=== PATIENT | female | born 1980 | race Caucasian/White ===

== ENCOUNTER → 2021-10-06 | Outpatient (CLI) | payer BC ==
[~2021-10-06] MED LIST: ACYC-109 PO; Birth Control Pill PO; CALC-656 PO; EPIN0.3P3 IJ; FLC1T PO; GARL400T13 PO; IBUP-15 PO; MULT-608 PO; OMG1KC PO
--- NOTE | 2021-10-06 14:02 | Diagnostic Imaging Report ---
Indication: Routine screening. No prior mammograms are available for comparison. This is a baseline study. 2-D and 3-D bilateral screening mammography was performed with CAD. Both breasts are heterogeneously dense, limiting the sensitivity of mammography. No mass or malignant-appearing microcalcifications are seen. Axillae are unremarkable. IMPRESSION: BI-RADS Category 1 No mammographic features suspicious for malignancy are identified. ACR BI-RADS Category 1: Negative. Result letter will be mailed to the patient. Note: At least 10% of breast cancer is not imaged by mammography. Dictated by: Dictated on workstation # [id number]
== END ==
LOC: RAD 10:00
PROVIDERS: ATTEND Obstetrics & Gynecology
DX: Z12.31 Encounter for screening mammogram for malignant neoplasm of breast (principal)
CPT/HCPCS: 77063; 77067

== ENCOUNTER → 2021-11-07 | Outpatient (CLI) | payer BC ==
[~2021-11-07] MED LIST changes: +CATHETER FLUSH 10 ML SYR IV PRN; +HOLD METFORMIN - RECEIVED CONTRAST 20 ML VIAL IV SCH; +IOHEXOL 350 MG/ML 100 ML (OMNIPAQUE 350) VIAL IV ONE; +NS 100 ML (IVPB) BAG IV ONE
--- NOTE | 2021-11-07 14:17 | Diagnostic Imaging Report ---
PROCEDURE: CT neck soft tissue with contrast. TECHNIQUE: Multiple contiguous axial images were obtained through the neck after the administration of contrast. Auto Exposure Controls were utilized during the CT exam to meet ALARA standards for radiation dose reduction. INDICATION: Painful swelling in the left neck. I have no priors. Mastoid air cells clear. The external, middle and inner ear structures bilaterally appeared unremarkable. Visualized paranasal sinuses clear. The orbital contents unremarkable. The nasopharynx, oropharynx and hypopharynx unremarkable. The pharyngeal trachea widely patent. Thoracic inlet, pulmonary apices and visualized superior mediastinum unremarkable. No abscess, hematoma or acute fluid collection. No stone disease. There is no acute inflammatory changes within the parotid or submandibular glands which at CT appeared symmetric. No pathologically enlarged cervical lymph nodes. No mass or fluid collection. No bony destruction. The prevertebral and retropharyngeal spaces were normal. No acute-appearing abnormality. IMPRESSION: No mass, adenopathy, fluid collection, airway embarrassment or acute-appearing abnormalities. No inflammatory changes identified. Dictated by: Dictated on workstation # [id number]
== END ==
LOC: RAD 09:45
PROVIDERS: ATTEND Specialist
DX: K11.20 Sialoadenitis, unspecified (principal); R59.0 Localized enlarged lymph nodes
CPT/HCPCS: 70491

== ENCOUNTER → 2021-12-14 | Outpatient (CLI) | payer BC ==
[~2021-12-14] MED LIST changes: -CATHETER FLUSH 10 ML SYR IV PRN; -HOLD METFORMIN - RECEIVED CONTRAST 20 ML VIAL IV SCH; -IOHEXOL 350 MG/ML 100 ML (OMNIPAQUE 350) VIAL IV ONE; -NS 100 ML (IVPB) BAG IV ONE
--- NOTE | 2021-12-14 14:28 | Diagnostic Imaging Report ---
INDICATION: Palpable lump left breast. Correlation is made with prior mammogram 10/06/2021. Unilateral left 2-D and 3-D diagnostic mammography was performed with CAD. BB markers placed at the area palpable abnormality upper inner left breast. CAD is utilized. The current study was also evaluated with a Computer Aided Detection (CAD) system. Left breast remains heterogeneously dense, limiting the sensitivity of mammography. There is a slightly lobulated density in the upper slightly inner left breast approximately 3-4 cm from the nipple, new since prior mammogram. May represent a cyst. No other masses are seen. No malignant-appearing microcalcifications are identified. IMPRESSION: Newly developing density in the upper inner left breast likely accounting for the palpable abnormality. May represent a cyst. Further evaluation with ultrasound is recommended and will be performed today. This is a BI-RADS 0 ACR BI-RADS Category 0: Incomplete. (Needs additional imaging evaluation). Result letter will be mailed to the patient. Note: At least 10% of breast cancer is not imaged by mammography. Dictated by: Dictated on workstation # [id number]
--- NOTE | 2021-12-14 16:01 | Diagnostic Imaging Report ---
INDICATION: Palpable lump left breast. Correlation is made with diagnostic mammogram earlier same day. Sonographic interrogation of the area palpable abnormality upper left breast was performed. There is a lobulated solid nodule at the 12 o'clock approximately 1 cm from the nipple measuring 1.2 x 0.9 x 1.0 cm. This does show some internal vascularity. This most likely represents a fibroadenoma. This likely accounts for the mammographic density. No other masses are seen. IMPRESSION: Lobulated solid nodule 12 o'clock location left breast, accounting for the palpable abnormality. This likely represents a fibroadenoma. However, tissue sampling would be recommended. This would be amenable to ultrasound-guided core biopsy. Dictated by: Dictated on workstation # [id number]
== END ==
LOC: RAD 14:15
PROVIDERS: ATTEND Nurse Practitioner Family
DX: N63.25 Unspecified lump in the left breast, overlapping quadrants (principal)
CPT/HCPCS: 76642; 77065; G0279

== ENCOUNTER → 2021-12-27 | Outpatient (CLI) | payer BC ==
[~2021-12-27] VITALS: Ht 157.5 cm; Wt 63.6 kg
[~2021-12-27] MED LIST changes: +LIDOCAINE 1% INJ 10 ML VIAL INJ ONE; +LIDOCAINE 1% INJ 10 ML VIAL ONE
--- NOTE | 2021-12-27 17:32 | Diagnostic Imaging Report ---
INDICATION: Status post left breast ultrasound-guided biopsy. EXAMINATION: Unilateral left 2D CC and ML mammography was performed after patient underwent ultrasound-guided biopsy. FINDINGS: There is a marker clip in the upper slightly inner left breast at mid to posterior depth. IMPRESSION: Marker clip placement, status post ultrasound-guided left breast biopsy. Dictated by: Dictated on workstation # [id number]
--- NOTE | 2021-12-27 17:34 | Diagnostic Imaging Report ---
INDICATION: Left breast nodule. EXAMINATION: Patient presents for ultrasound-guided biopsy. PROCEDURE: Patient was brought to the sonographic suite and placed on the table in the supine position. Ultrasound imaging of the left breast was performed to evaluate appropriate entry site. Left breast was then prepped and draped in the usual sterile fashion. Small amount of 1% lidocaine was utilized for local anesthesia. 4 core biopsies were made through the hypoechoic nodule in the 12:00 location left breast utilizing a 14-gauge Achieve needle. Marker clip was then deployed. Patient tolerated the procedure well and was sent for postprocedure mammogram in satisfactory condition. IMPRESSION: Successful ultrasound-guided core biopsy of the hypoechoic nodule in the 12:00 location of the left breast. Pathology results are currently pending. Dictated by: Dictated on workstation # [id number]
== END ==
LOC: RAD 13:27
PROVIDERS: ATTEND Nurse Practitioner Family
DX: N63.25 Unspecified lump in the left breast, overlapping quadrants (principal)
CPT/HCPCS: 19083; 77065; G0279

== ENCOUNTER 2022-06-21 16:15 | Outpatient (RCR) | payer BC ==
[~2022-06-21 16:15] MED LIST changes: -LIDOCAINE 1% INJ 10 ML VIAL INJ ONE; -LIDOCAINE 1% INJ 10 ML VIAL ONE
== END 2022-06-22 | disposition home or self-care (01) ==
DX: M79.672 Pain in left foot (principal); M79.671 Pain in right foot; R26.89 Other abnormalities of gait and mobility

== ENCOUNTER 2022-07-18 15:42 | Outpatient (RCR) | payer BC | END 2022-07-22 | disposition home or self-care (01) | DX: M79.672 Pain in left foot (principal); M79.671 Pain in right foot ==

== ENCOUNTER → 2022-08-22 | Outpatient (RCR) | payer BC | END | disposition home or self-care (01) | DX: M79.672 Pain in left foot (principal); M79.671 Pain in right foot ==

== ENCOUNTER → 2022-10-26 | Outpatient (CLI) | payer BC ==
--- NOTE | 2022-10-26 12:46 | Diagnostic Imaging Report ---
INDICATION: Palpable lump left breast. COMPARISON is made with prior mammogram 10/06/2021. 2-D and 3-D bilateral diagnostic mammography was performed with CAD. A BB marker was placed at the area of palpable abnormality in the upper outer left breast. Both breasts are heterogeneously dense, limiting the sensitivity of mammography. Nodule noted in the upper aspect of the left breast contains a marker clip from prior biopsy. This reportedly represents a fibroadenoma. At the area palpable abnormality, no underlying abnormality is seen. No malignant-appearing microcalcifications are seen. Axillae are unremarkable. IMPRESSION: BI-RADS Category 0 No mammographic features suspicious for malignancy are identified. Even so, directed sonographic interrogation of the area palpable abnormality in the upper outer left breast is recommended and will be performed today. ACR BI-RADS Category 0: Incomplete. (Needs additional imaging evaluation). Result letter will be mailed to the patient. Note: At least 10% of breast cancer is not imaged by mammography. Dictated by: Dictated on workstation # [id number]
--- NOTE | 2022-10-26 16:31 | Diagnostic Imaging Report ---
Indication: Palpable lump left breast. Correlation is made with diagnostic mammogram earlier same day. Sonographic interrogation of the area of palpable abnormality upper outer left breast was performed. No sonographic abnormality is identified at the area of palpable abnormality. No solid or cystic mass is seen. 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 This has been previously biopsied. IMPRESSION: BI-RADS Category 2 No abnormalities identified at the area of palpable abnormality upper outer left breast. The patient may return to routine annual screening mammography. ACR BI-RADS Category 2: Benign findings. Result letter will be mailed to the patient. Note: At least 10% of breast cancer is not imaged by mammography. Dictated by: Dictated on workstation # [id number]
== END ==
LOC: RAD 12:17
PROVIDERS: ATTEND Nurse Practitioner Family
DX: N63.20 Unspecified lump in the left breast, unspecified quadrant (principal); N63.10 Unspecified lump in the right breast, unspecified quadrant
CPT/HCPCS: 76642; 77066; G0279; 77062